=== PATIENT | female | born 1945 | race Asian ===

== ENCOUNTER 2016-08-25 08:49 | Outpatient (CLI) | payer OTHER ==
[~2016-08-25 08:49] MED LIST: COLC0.6T6 PO; CRESTOR20 MG PO; DIOVAN40 MG OR; GLIP10TA55 PO; GLUCOPHAGE1000 MG PO; GLYB5TAB65 PO; LEVEMIR FLEXPEN SC; METO25TA4 OR; NEURONTIN800 MG PO; SPIR25TA66 PO; TORSEMIDE20 MG PO; TRADJENTA5 M1 OR; TRADJENTA5 MG OR; VIMOVO1 TA1 OR; [UNRECOGNIZED DRUG - OTHER] XX
== END 2016-08-25 09:49 | disposition home or self-care (01) ==
LOC: US 08:49
DX: R11.2 Nausea with vomiting, unspecified (principal)

== ENCOUNTER 2016-10-21 08:46 | Outpatient (CLI) | payer OTHER | END 2016-10-21 19:15 | disposition home or self-care (01) | LOC: US 08:46 | DX: R09.89 Other specified symptoms and signs involving the circulatory and respiratory systems (principal) ==

== ENCOUNTER 2017-02-25 08:39 | Outpatient (CLI) | payer OTHER ==
[2017-02-25 08:58] LABS: PLATELET COUNT 226 K/uL (152-353)
[2017-02-25 10:28] LABS: POTASSIUM 3.9 mmol/L (3.6-5.2)
== END 2017-02-25 19:06 | disposition home or self-care (01) ==
LOC: LABW 08:39
PROVIDERS: Physician Assistant
DX: I10 Essential (primary) hypertension (principal); I25.10 Atherosclerotic heart disease of native coronary artery without angina pectoris; E78.4 Other hyperlipidemia; E11.9 Type 2 diabetes mellitus without complications
CPT/HCPCS: 36415; 80053; 80061; 83036; 83735; 84439; 84443; 85027

== ENCOUNTER 2017-03-17 08:17 | Outpatient (CLI) | payer OTHER | END 2017-03-17 10:20 | disposition home or self-care (01) | LOC: US 08:17 | DX: Z12.31 Encounter for screening mammogram for malignant neoplasm of breast (principal); N28.89 Other specified disorders of kidney and ureter ==

== ENCOUNTER 2017-04-06 10:37 | Outpatient (CLI) | payer OTHER ==
[2017-04-06 11:01] LABS: POTASSIUM 4.2 mmol/L (3.6-5.2)
== END 2017-04-06 11:40 | disposition home or self-care (01) ==
LOC: LAB 10:37
PROVIDERS: Physician Assistant
DX: N28.89 Other specified disorders of kidney and ureter (principal)
CPT/HCPCS: 80053

== ENCOUNTER 2017-08-30 08:24 | Outpatient (CLI) | payer OTHER ==
[2017-08-30 09:36] LABS: PLATELET COUNT 231 K/uL (152-353)
[2017-08-30 10:39] LABS: POTASSIUM 4.2 mmol/L (3.6-5.2)
== END 2017-08-30 21:55 | disposition home or self-care (01) ==
LOC: LABW 08:24
PROVIDERS: Podiatrist
DX: M10.071 Idiopathic gout, right ankle and foot (principal); M10.072 Idiopathic gout, left ankle and foot; E11.9 Type 2 diabetes mellitus without complications
CPT/HCPCS: 36415; 80053; 80061; 81000; 82043; 82570; 83036; 84550; 85027; 85651

== ENCOUNTER 2017-10-11 08:17 | Outpatient (CLI) | payer OTHER | END 2017-10-11 18:16 | disposition home or self-care (01) | LOC: LABW 08:17 | DX: M10.072 Idiopathic gout, left ankle and foot (principal) | CPT/HCPCS: 36415; 84550 ==

== ENCOUNTER 2017-11-17 16:52 | Outpatient (CLI) | payer OTHER | END 2017-11-17 19:18 | disposition home or self-care (01) | LOC: RAD 16:52 | DX: M54.2 Cervicalgia (principal) ==

== ENCOUNTER 2017-11-28 10:37 | Outpatient (CLI) | payer OTHER ==
[2017-11-28 11:07] LABS: PLATELET COUNT 211 K/uL (152-353)
[2017-11-28 11:29] LABS: POTASSIUM 4.3 mmol/L (3.6-5.2)
== END 2017-11-28 20:22 | disposition home or self-care (01) ==
LOC: LABW 10:37
PROVIDERS: Internal Medicine
DX: E11.9 Type 2 diabetes mellitus without complications (principal)
CPT/HCPCS: 36415; 80053; 80061; 81000; 82043; 82570; 83036; 84443; 84550; 85027

== ENCOUNTER 2018-04-25 15:12 | Outpatient (CLI) | payer OTHER | END 2018-04-25 21:32 | disposition home or self-care (01) | LOC: LABW 15:12 | DX: M10.072 Idiopathic gout, left ankle and foot (principal) | CPT/HCPCS: 36415; 84550; 85651 ==

== ENCOUNTER 2018-06-05 08:31 | Outpatient (CLI) | payer OTHER | END 2018-06-05 22:16 | disposition home or self-care (01) | LOC: LABW 08:31 | DX: M10.072 Idiopathic gout, left ankle and foot (principal) | CPT/HCPCS: 36415; 84550; 85651 ==

== ENCOUNTER 2018-08-08 09:30 | Outpatient (CLI) | payer OTHER ==
[2018-08-08 10:08] LABS: PLATELET COUNT 209 K/uL (152-353)
[2018-08-08 10:31] LABS: POTASSIUM 4.8 mmol/L (3.6-5.2)
== END 2018-08-08 22:58 | disposition home or self-care (01) ==
LOC: LABW 09:30
PROVIDERS: Internal Medicine
DX: E11.9 Type 2 diabetes mellitus without complications (principal)
CPT/HCPCS: 36415; 80053; 80061; 81000; 82043; 82570; 83036; 84439; 84443; 84550; 85027

== ENCOUNTER 2019-01-10 11:56 | Outpatient (CLI) | payer OTHER | END 2019-01-10 23:59 | LOC: RAD 11:56 | DX: M53.1 Cervicobrachial syndrome (principal); M79.601 Pain in right arm; M79.602 Pain in left arm; M79.642 Pain in left hand; M79.641 Pain in right hand ==

== ENCOUNTER 2019-01-31 11:26 | Outpatient (CLI) | payer OTHER | END 2019-01-31 20:12 | disposition home or self-care (01) | LOC: RAD 11:26 | DX: J40 Bronchitis, not specified as acute or chronic (principal) ==

== ENCOUNTER 2019-03-05 10:03 | Outpatient (CLI) | payer OTHER ==
[2019-03-05 10:43] LABS: PLATELET COUNT 195 K/uL (152-353)
[2019-03-05 11:16] LABS: POTASSIUM 4.7 mmol/L (3.6-5.2)
== END 2019-03-05 19:24 | disposition home or self-care (01) ==
LOC: LABW 10:03
PROVIDERS: Internal Medicine
DX: E11.9 Type 2 diabetes mellitus without complications (principal)
CPT/HCPCS: 36415; 80053; 80061; 81000; 82043; 82570; 83036; 84439; 84443; 85027

== ENCOUNTER 2019-03-13 09:08 | Outpatient (CLI) | payer OTHER | END 2019-03-13 18:58 | disposition home or self-care (01) | LOC: RESP 09:08 | DX: G56.03 Carpal tunnel syndrome, bilateral upper limbs (principal); G56.23 Lesion of ulnar nerve, bilateral upper limbs; G60.8 Other hereditary and idiopathic neuropathies | CPT/HCPCS: 95885; 95911 ==

== ENCOUNTER 2019-04-11 08:54 | Outpatient (CLI) | payer OTHER | END 2019-04-11 20:09 | disposition home or self-care (01) | LOC: LABW 08:54 | DX: R12 Heartburn (principal) | CPT/HCPCS: 36415; 86677 ==

== ENCOUNTER 2019-07-16 09:07 | Outpatient (CLI) | payer OTHER ==
[2019-07-16 09:30] LABS: PLATELET COUNT 212 K/uL (152-353)
[2019-07-16 09:52] LABS: POTASSIUM 3.8 mmol/L (3.6-5.2)
== END 2019-07-16 19:51 | disposition home or self-care (01) ==
LOC: LABW 09:07
PROVIDERS: Internal Medicine
DX: Z00.00 Encounter for general adult medical examination without abnormal findings (principal); E11.9 Type 2 diabetes mellitus without complications; I10 Essential (primary) hypertension
CPT/HCPCS: 36415; 80053; 80061; 81000; 83036; 84439; 84443; 85027

== ENCOUNTER 2019-12-26 09:23 | Outpatient (CLI) | payer OTHER ==
[2019-12-26 09:49] LABS: PLATELET COUNT 171 K/uL (152-353)
[2019-12-26 10:07] LABS: POTASSIUM 4.7 mmol/L (3.6-5.2)
== END 2019-12-26 19:43 | disposition home or self-care (01) ==
LOC: LABW 09:23
PROVIDERS: Internal Medicine
DX: E11.9 Type 2 diabetes mellitus without complications (principal); M19.90 Unspecified osteoarthritis, unspecified site
CPT/HCPCS: 36415; 80053; 80061; 81000; 82043; 82570; 83036; 84439; 84443; 84550; 85027

== ENCOUNTER 2020-02-03 09:07 | Outpatient (CLI) | payer OTHER ==
[2020-02-03 10:18] LABS: PLATELET COUNT 193 K/uL (152-353)
== END 2020-02-03 18:54 | disposition home or self-care (01) ==
LOC: LABW 09:07
PROVIDERS: Internal Medicine
DX: M25.511 Pain in right shoulder (principal); M54.12 Radiculopathy, cervical region; E11.65 Type 2 diabetes mellitus with hyperglycemia; I10 Essential (primary) hypertension; E78.2 Mixed hyperlipidemia
CPT/HCPCS: 36415; 80053; 80061; 81000; 82043; 82306; 82550; 82570; 83036; 84155; 84443; 85027; 86038; 86430

== ENCOUNTER 2020-04-09 09:14 | Day surgery (SDC) | payer OTHER ==
[2020-04-07 13:23] LABS: PLATELET COUNT 193 K/uL (152-353)
== END 2020-04-10 14:00 | disposition home or self-care (01) ==
LOC: OR 09:14
PROVIDERS: ATTEND Internal Medicine Gastroenterology
PROC: 0DJD8ZZ Inspection of Lower Intestinal Tract, Via Natural or Artificial Opening Endoscopic (ICD-10-PCS; principal; 2020-04-09)
DX: K57.30 Diverticulosis of large intestine without perforation or abscess without bleeding (principal); K64.8 Other hemorrhoids; Z12.11 Encounter for screening for malignant neoplasm of colon; E11.9 Type 2 diabetes mellitus without complications; R06.02 Shortness of breath
CPT/HCPCS: 80053; 82947; 83880; 85027; 93005; J2704; J3490

== ENCOUNTER 2020-04-10 09:04 | Outpatient (CLI) | payer OTHER ==
[2020-04-10 10:08] LABS: POTASSIUM 4.5 mmol/L (3.6-5.2)
[2020-04-10 10:31] LABS: PLATELET COUNT 179 K/uL (152-353)
== END 2020-04-10 19:02 | disposition home or self-care (01) ==
LOC: LABW 09:04
PROVIDERS: ATTEND Internal Medicine
DX: E11.65 Type 2 diabetes mellitus with hyperglycemia (principal); E78.2 Mixed hyperlipidemia
CPT/HCPCS: 36415; 80053; 80061; 81000; 82043; 82550; 82570; 83036; 84155; 84443; 85027

== ENCOUNTER → 2020-07-02 09:18 | Outpatient (CLI) | payer OTHER | END | disposition home or self-care (01) | LOC: MRI 09:18 | PROVIDERS: ATTEND Internal Medicine | DX: I63.9 Cerebral infarction, unspecified (principal) ==

== ENCOUNTER 2020-07-09 09:04 | Outpatient (CLI) | payer OTHER ==
[2020-07-09 09:48] LABS: PLATELET COUNT 191 K/uL (152-353)
[2020-07-09 10:00] LABS: POTASSIUM 4.8 mmol/L (3.6-5.2)
== END 2020-07-09 21:41 | disposition home or self-care (01) ==
LOC: LABW 09:04
PROVIDERS: ATTEND Internal Medicine
DX: E78.2 Mixed hyperlipidemia (principal); N39.0 Urinary tract infection, site not specified
CPT/HCPCS: 36415; 80053; 81000; 85027; 87086; 87088

== ENCOUNTER 2020-07-24 08:23 | Outpatient (CLI) | payer OTHER ==
[2020-07-24 10:33] LABS: PLATELET COUNT 215 K/uL (152-353)
[2020-07-24 10:50] LABS: POTASSIUM 4.1 mmol/L (3.6-5.2)
== END 2020-07-24 21:25 | disposition home or self-care (01) ==
LOC: US 08:23 → LABW 08:23 → US 21:25
PROVIDERS: ATTEND Internal Medicine Nephrology
DX: N18.30 Chronic kidney disease, stage 3 unspecified (principal); R06.02 Shortness of breath; R53.82 Chronic fatigue, unspecified; E11.9 Type 2 diabetes mellitus without complications; R82.998 Other abnormal findings in urine
CPT/HCPCS: 36415; 80053; 80074; 81000; 82306; 82728; 82784; 83036; 83516; 83540; 83550; 83970; 84100; 84165; 85027; 85044; 86038; 86160; 86255; 86335; 86592; 87086; 87088; 89050; 93975

== ENCOUNTER 2020-08-19 12:42 | Outpatient (CLI) | payer OTHER | END 2020-08-19 18:00 | disposition home or self-care (01) | LOC: US 12:42 | PROVIDERS: ATTEND Internal Medicine | DX: R05 Cough (principal); M79.605 Pain in left leg; E11.65 Type 2 diabetes mellitus with hyperglycemia; I10 Essential (primary) hypertension; R51.9 Headache, unspecified ==

== ENCOUNTER 2020-09-11 08:43 | Outpatient (CLI) | payer OTHER ==
[2020-09-11 10:28] LABS: PLATELET COUNT 159 K/uL (152-353)
[2020-09-11 10:31] LABS: POTASSIUM 5.1 mmol/L (3.6-5.2)
== END 2020-09-11 19:34 | disposition home or self-care (01) ==
LOC: LABW 08:43 → MRI 09:00 → LABW 19:34
PROVIDERS: ATTEND Internal Medicine
DX: E11.65 Type 2 diabetes mellitus with hyperglycemia (principal); I10 Essential (primary) hypertension; E78.2 Mixed hyperlipidemia; R51.9 Headache, unspecified
CPT/HCPCS: 36415; 80053; 80061; 81000; 82043; 82550; 82570; 83036; 84155; 84443; 84550; 85027; 85652

== ENCOUNTER 2020-11-12 08:15 | Outpatient (CLI) | payer OTHER | END 2020-11-12 17:00 | disposition home or self-care (01) | LOC: US 08:15 | PROVIDERS: ATTEND Internal Medicine | DX: R10.84 Generalized abdominal pain (principal); M79.601 Pain in right arm; M79.641 Pain in right hand ==

== ENCOUNTER 2021-01-30 11:29 | Outpatient (CLI) | payer OTHER | END 2021-01-30 19:04 | disposition home or self-care (01) | LOC: CT 11:29 | PROVIDERS: ATTEND Psychiatry & Neurology Neurology | DX: Z86.73 Personal history of transient ischemic attack (TIA), and cerebral infarction without residual deficits (principal); I63.89 Other cerebral infarction ==

== ENCOUNTER 2021-02-23 09:40 | Outpatient (CLI) | payer OTHER ==
[2021-02-23 10:28] LABS: PLATELET COUNT 173 K/uL (152-353)
[2021-02-23 10:58] LABS: POTASSIUM 4.5 mmol/L (3.6-5.2)
== END 2021-02-23 21:07 | disposition home or self-care (01) ==
LOC: LABW 09:40
PROVIDERS: ATTEND Internal Medicine Nephrology
DX: N18.30 Chronic kidney disease, stage 3 unspecified (principal); D64.9 Anemia, unspecified
CPT/HCPCS: 36415; 80053; 81000; 82043; 82570; 82728; 83540; 83550; 83970; 85027; 86592

== ENCOUNTER 2021-03-11 11:54 | Outpatient (CLI) | payer OTHER ==
[2021-03-11 12:30] LABS: PLATELET COUNT 188 K/uL (152-353)
[2021-03-11 12:52] LABS: POTASSIUM 4.3 mmol/L (3.6-5.2)
== END 2021-03-11 21:52 | disposition home or self-care (01) ==
LOC: LABW 11:54
PROVIDERS: ATTEND Internal Medicine
DX: R07.89 Other chest pain (principal); D50.8 Other iron deficiency anemias
CPT/HCPCS: 36415; 80053; 82607; 82728; 82746; 83540; 83550; 85027

== ENCOUNTER 2021-06-16 09:59 | Outpatient (CLI) | payer OTHER ==
[2021-06-16 10:57] LABS: PLATELET COUNT 206 K/uL (152-353)
[2021-06-16 11:16] LABS: POTASSIUM 4.3 mmol/L (3.6-5.2)
== END 2021-06-16 18:58 | disposition home or self-care (01) ==
LOC: LABW 09:59
PROVIDERS: ATTEND Internal Medicine
DX: E11.65 Type 2 diabetes mellitus with hyperglycemia (principal); I10 Essential (primary) hypertension; E78.2 Mixed hyperlipidemia; M35.00 Sjogren syndrome, unspecified
CPT/HCPCS: 36415; 80053; 80061; 81000; 82043; 82550; 82570; 83036; 83735; 84155; 84443; 85027; 85652; 86140

== ENCOUNTER 2021-12-07 11:07 | Outpatient (CLI) | payer OTHER | END 2021-12-07 18:50 | disposition home or self-care (01) | LOC: LABW 11:07 | PROVIDERS: ATTEND Podiatrist | DX: M10.071 Idiopathic gout, right ankle and foot (principal); M10.072 Idiopathic gout, left ankle and foot | CPT/HCPCS: 36415; 84550 ==

== ENCOUNTER 2021-12-11 13:10 | Outpatient (CLI) | payer OTHER ==
[2021-12-11 13:47] LABS: PLATELET COUNT 148 K/uL (152-353)
[2021-12-11 14:13] LABS: POTASSIUM 4.2 mmol/L (3.6-5.2)
== END 2021-12-11 19:05 | disposition home or self-care (01) ==
LOC: LABW 13:10
PROVIDERS: ATTEND Internal Medicine Nephrology
DX: I12.9 Hypertensive chronic kidney disease with stage 1 through stage 4 chronic kidney disease, or unspecified chronic kidney disease (principal); N18.30 Chronic kidney disease, stage 3 unspecified; E11.9 Type 2 diabetes mellitus without complications; D64.89 Other specified anemias; E53.8 Deficiency of other specified B group vitamins
CPT/HCPCS: 36415; 80053; 80061; 81002; 81015; 82306; 82570; 82607; 82728; 82746; 83036; 83540; 83550; 83970; 84100; 84156; 84439; 84443; 85027

== ENCOUNTER 2022-02-26 11:26 | Outpatient (CLI) | payer OTHER ==
[2022-02-26 12:03] LABS: PLATELET COUNT 167 K/uL (152-353)
[2022-02-26 12:31] LABS: POTASSIUM 4.3 mmol/L (3.6-5.2)
== END 2022-02-26 19:04 | disposition home or self-care (01) ==
LOC: LABW 11:26
PROVIDERS: ATTEND Internal Medicine Nephrology
DX: I12.9 Hypertensive chronic kidney disease with stage 1 through stage 4 chronic kidney disease, or unspecified chronic kidney disease (principal); N18.32 Chronic kidney disease, stage 3b; D51.8 Other vitamin B12 deficiency anemias; D64.89 Other specified anemias; E55.9 Vitamin D deficiency, unspecified; E88.9 Metabolic disorder, unspecified; R94.6 Abnormal results of thyroid function studies; E78.49 Other hyperlipidemia; E11.65 Type 2 diabetes mellitus with hyperglycemia
CPT/HCPCS: 36415; 80053; 80061; 81002; 82306; 82570; 82607; 82728; 82746; 83036; 83540; 83550; 83970; 84100; 84156; 84439; 84443; 85027

== ENCOUNTER 2022-06-26 13:28 | Outpatient (CLI) | payer OTHER ==
[2022-06-26 15:12] LABS: POTASSIUM 4.4 mmol/L (3.6-5.2)
[2022-06-26 15:50] LABS: PLATELET COUNT 175 K/uL (152-353)
== END 2022-06-26 20:16 | disposition home or self-care (01) ==
LOC: LABW 13:28
PROVIDERS: ATTEND Internal Medicine Nephrology
DX: I12.9 Hypertensive chronic kidney disease with stage 1 through stage 4 chronic kidney disease, or unspecified chronic kidney disease (principal); N18.30 Chronic kidney disease, stage 3 unspecified; D51.8 Other vitamin B12 deficiency anemias; D64.89 Other specified anemias; E55.9 Vitamin D deficiency, unspecified; E88.89 Other specified metabolic disorders; R94.6 Abnormal results of thyroid function studies; E78.49 Other hyperlipidemia; E11.65 Type 2 diabetes mellitus with hyperglycemia
CPT/HCPCS: 36415; 80053; 80061; 81002; 82306; 82570; 82607; 82728; 82746; 83036; 83550; 83970; 84100; 84156; 84439; 84443; 85027

== ENCOUNTER 2022-09-21 12:43 | Outpatient (CLI) | payer OTHER | END 2022-09-21 19:25 | disposition home or self-care (01) | LOC: MAMMO 12:43 | PROVIDERS: ATTEND Nurse Practitioner Family | DX: Z12.31 Encounter for screening mammogram for malignant neoplasm of breast (principal); Z78.0 Asymptomatic menopausal state ==

== ENCOUNTER 2022-10-22 11:40 | Outpatient (CLI) | payer OTHER | END 2022-10-22 19:01 | disposition home or self-care (01) | LOC: LABW 11:40 | PROVIDERS: ATTEND Internal Medicine Nephrology | DX: N18.32 Chronic kidney disease, stage 3b (principal) | CPT/HCPCS: 36415; 81002; 82607; 82746 ==

== ENCOUNTER 2022-11-03 09:45 | Outpatient (CLI) | payer OTHER ==
[2022-11-03 10:18] LABS: PLATELET COUNT 151 K/uL (152-353)
[2022-11-03 10:56] LABS: POTASSIUM 4.1 mmol/L (3.6-5.2)
== END 2022-11-03 22:06 | disposition home or self-care (01) ==
LOC: LABW 09:45
PROVIDERS: ATTEND Internal Medicine Nephrology
DX: N18.32 Chronic kidney disease, stage 3b (principal); Z79.899 Other long term (current) drug therapy
CPT/HCPCS: 36415; 80053; 82570; 82728; 83036; 83540; 83550; 83970; 84100; 84156; 84439; 84443; 85027